=== PATIENT | male | born 1960 | race African-American/Black ===

== ENCOUNTER 2016-04-30 13:13 | Inpatient (IN) | payer MEDICAID ==
[~2016-04-30] VITALS: Ht 167.6 cm; Wt 94.8 kg
[2016-04-30] VITALS (8 sets, daily range): BP systolic 130–146; BP diastolic 70–106
[2016-04-30 15:11] LABS: BASOPHILS % 0.8 % (0.0-2.0); EOSINOPHILS % 2.3 % (0.0-5.0); HEMATOCRIT. 44.3 % (42.0-52.0); HEMOGLOBIN. 14.5 g/dL (14.0-18.0); LYMPHOCYTES % 31.8 % (20.0-50.0); MEAN CORPUSCULAR HEMOGLOBIN 26.7 pg (28.0-32.0); MEAN CORPUSCULAR HGB CONC 32.8 g/dL (31.0-37.0); MEAN CORPUSCULAR VOLUME 81.4 fL (80.0-94.0); MEAN PLATELET VOLUME 7.9 fl (7.4-10.4); MONOCYTES % 12.3 % (2.0-8.0); NEUTROPHILS % 52.8 % (40.0-76.0); PLATELET 227 x1000/uL (130-400); RED BLOOD CELL COUNT 5.44 mill/uL (4.7-6.1); RED CELL DISTRIBUTION WIDTH 15.8 % (11.6-14.6); WHITE BLOOD COUNT 5.9 x1000/uL (4.5-11.0)
[2016-04-30 15:27] LABS: ALANINE AMINOTRANSFERASE 44 IU/L (13-61); ALBUMIN 3.2 g/dL (3.4-5.0); ANION GAP 12; CALCIUM 8.6 mg/dL (8.5-10.1); CARBON DIOXIDE 28 mEq/L (21-32); CHLORIDE 104 mEq/L (98-107); INDEX HEMOLYSI 1 (1-3); INDEX ICTERIC 1 (1-4); INDEX LIPEMIC 1 (1-3); LIPASE 66 IU/L (73-393); UREA NITROGEN BLOOD 8 mg/dL (7-21); eGFR > 60 mL/min (>60)
[2016-04-30 15:31] LABS: D-DIMER 0.55 mg/L FEU (<0.50); PARTIAL THROMBOPLASTIN TIME 29.5 sec (24.0-34.0); PROTHROMBIN TIME 10.7 sec
[2016-04-30] MEDS ORDERED: ASPIRIN 325MG EC TABLET PO ONE (15:45)
[2016-04-30] MEDS ORDERED: METOPROLOL TARTRATE 50MG TABLET PO ONE (16:30)
[2016-04-30] MEDS ORDERED: ENOXAPARIN 100MG/ML SYR SUBCUT ONE (17:45)
[2016-04-30] MEDS ORDERED: ACETAMINOPHEN 325MG TABLET PO PRN (18:45)
[2016-04-30] MEDS ORDERED: DIPHENHYDRAMINE 50MG/ML VIAL IV PRN (18:45)
[2016-04-30] MEDS ORDERED: MAGNESIUM/ALUMINUM HYDROXIDE/SIMETHICONE 30ML UDC PO PRN (18:45)
[2016-04-30] MEDS ORDERED: HYDROCODONE/ACETAMINOPHEN 5/325MG TABLET PO PRN (18:45)
[2016-04-30] MEDS ORDERED: ENOXAPARIN 40MG/0.4ML SYR SUBCUT SCH ×2 (18:45→22:30)
[2016-04-30] MEDS ORDERED: HYDROMORPHONE HCL/PF 2MG/ML CPJ IV PRN (18:45)
[2016-04-30] MEDS ORDERED: NA PHOS,M-B/NA PHOS,DI-BA ENEMA 118ML PR PRN (18:45)
[2016-04-30] MEDS ORDERED: ONDANSETRON HCL 4MG/2ML VIAL IV PRN (18:45)
[2016-04-30] MEDS ORDERED: LORAZEPAM 2MG/ML CPJ IV PRN (18:45)
[2016-04-30] MEDS ORDERED: DOCUSATE SODIUM 100MG CAPSULE PO PRN (18:45)
[2016-04-30] MEDS: GUAIFENESIN 200MG/10ML SUGAR FREE UDC PO PRN (19:49)
[2016-04-30 21:07] LABS: *AMPHETAMINES SCREEN URINE NEGATIVE (NEGATIVE); *BARBITURATES SCREEN URINE NEGATIVE (NEGATIVE); *BENZODIAZEPINES SCREEN URINE PRESUMTIVE POSITIVE (NEGATIVE); *COCAINE SCREEN URINE NEGATIVE (NEGATIVE); CANNABINOID URINE SCREEN NEGATIVE (NEGATIVE); ECSTASY MDMA SCREEN URINE NEGATIVE (NEGATIVE); METHADONE URINE SCREEN NEGATIVE (NEGATIVE); OPIATES URINE SCREEN NEGATIVE (NEGATIVE); PHENCYCLIDINE URINE SCREEN NEGATIVE (NEGATIVE)
[2016-04-30] MEDS ORDERED: LORAZEPAM 2MG/ML CPJ IV ONE (21:15)
[2016-04-30 21:23] LABS: ANION GAP 15; CALCIUM 8.2 mg/dL (8.5-10.1); CARBON DIOXIDE 25 mEq/L (21-32); CHLORIDE 103 mEq/L (98-107); INDEX HEMOLYSI 1 (1-3); INDEX ICTERIC 1 (1-4); INDEX LIPEMIC 1 (1-3); UREA NITROGEN BLOOD 10 mg/dL (7-21); eGFR > 60 mL/min (>60)
[2016-04-30] MEDS ORDERED: ENOXAPARIN 30MG/0.3ML SYR SUBCUT SCH (22:21)
[2016-04-30] MEDS ORDERED: SODIUM CHLORIDE 0.45% 1,000 ML IV SCH (22:30)
[2016-05-01] VITALS (33 sets, daily range): BP systolic 100–165; BP diastolic 52–112
[2016-05-01] MEDS: IPRATROPIUM/ALBUTEROL 0.5-3(2.5)MG/3ML NEB INH SCH ×4 (00:03→21:10)
[2016-05-01] MEDS: GUAIFENESIN 200MG/10ML SUGAR FREE UDC PO PRN (00:15)
[2016-05-01] MEDS: CLONIDINE 0.1MG TABLET PO PRN ×2 (00:15→21:25)
[2016-05-01 06:03] LABS: BASOPHILS % 0.9 % (0.0-2.0); EOSINOPHILS % 2.5 % (0.0-5.0); HEMATOCRIT. 42.9 % (42.0-52.0); LYMPHOCYTES % 29.5 % (20.0-50.0); MEAN CORPUSCULAR HEMOGLOBIN 26.9 pg (28.0-32.0); MEAN CORPUSCULAR HGB CONC 32.6 g/dL (31.0-37.0); MEAN CORPUSCULAR VOLUME 82.3 fL (80.0-94.0); MEAN PLATELET VOLUME 8.3 fl (7.4-10.4); MONOCYTES % 9.6 % (2.0-8.0); NEUTROPHILS % 57.5 % (40.0-76.0); PLATELET 207 x1000/uL (130-400); RED BLOOD CELL COUNT 5.21 mill/uL (4.7-6.1); RED CELL DISTRIBUTION WIDTH 15.4 % (11.6-14.6)
[2016-05-01 07:02] LABS: ALANINE AMINOTRANSFERASE 41 IU/L (13-61); ANION GAP 15; CALCIUM 8.4 mg/dL (8.5-10.1); CARBON DIOXIDE 24 mEq/L (21-32); CHLORIDE 102 mEq/L (98-107); INDEX HEMOLYSI 1 (1-3); INDEX ICTERIC 1 (1-4); INDEX LIPEMIC 1 (1-3); UREA NITROGEN BLOOD 9 mg/dL (7-21); eGFR > 60 mL/min (>60)
[2016-05-01 07:19] LABS: HDL CHOLESTEROL 43 mg/dL (40-59); LDL CHOLESTEROL 162 mg/dL (5-100); T4 FREE 1.14 ng/dL (0.76-1.46); THYROID STIMULATING HORMONE 0.95 mIU/mL (0.36-3.74); TRIGLYCERIDE 161 mg/dL (0-150)
[2016-05-01] MEDS ORDERED: FUROSEMIDE 40MG/4ML VIAL IV SCH (09:00)
[2016-05-01] MEDS ORDERED: IODIXANOL 320MG/ML 200ML BOTTLE ONE ×2 (09:11→10:05)
[2016-05-01] MEDS ORDERED: LIDOCAINE HCL 1% 20ML VIAL (Pyxis) INJ ONE (09:11)
[2016-05-01] MEDS ORDERED: FENTANYL CITRATE/PF 50MCG/ML 2ML VIAL ONE (09:15)
[2016-05-01] MEDS ORDERED: MIDAZOLAM HCL 2 MG/2 ML VIAL ONE (09:15)
[2016-05-01] MEDS ORDERED: IOVERSOL 240MG/ML 100ML BOTTLE IV ONE (09:50)
[2016-05-01] MEDS ORDERED: CLOPIDOGREL 75MG TABLET ONE (10:11)
[2016-05-01] MEDS ORDERED: ATROPINE SULFATE 1MG/10ML SYR IV PRN (10:30)
[2016-05-01] MEDS ORDERED: ACETAMINOPHEN 325MG TABLET PO PRN (10:30)
[2016-05-01] MEDS ORDERED: CLOPIDOGREL 75MG TABLET PO ONE (10:30)
[2016-05-01] MEDS: ASPIRIN 81MG EC TABLET PO SCH (11:17)
[2016-05-01] MEDS: CARVEDILOL 6.25 MG TABLET PO SCH ×2 (11:18→20:14)
[2016-05-01] MEDS ORDERED: AMLO2.5T2 PO (12:38)
[2016-05-01] MEDS ORDERED: NITROGLYCERIN 50MCG/ML 10ML VIAL (CATH LAB) IV ONE (14:08)
[2016-05-01] MEDS ORDERED: HEPARIN SODIUM 1,000 UNIT/1ML VIAL IV ONE (14:30)
[2016-05-01] MEDS: LISINOPRIL 10MG TABLET PO SCH (20:14)
[2016-05-01] MEDS ORDERED: ATORVASTATIN CALCIUM 40MG TABLET PO SCH (21:00)
[2016-05-02] VITALS (20 sets, daily range): BP systolic 119–158; BP diastolic 64–114
[2016-05-02] MEDS: IPRATROPIUM/ALBUTEROL 0.5-3(2.5)MG/3ML NEB INH SCH ×3 (03:27→15:09)
[2016-05-02 05:30] LABS: BASOPHILS % 0.8 % (0.0-2.0); HEMATOCRIT. 39.2 % (42.0-52.0); HEMOGLOBIN. 12.8 g/dL (14.0-18.0); LYMPHOCYTES % 26.6 % (20.0-50.0); MEAN CORPUSCULAR HEMOGLOBIN 26.8 pg (28.0-32.0); MEAN CORPUSCULAR HGB CONC 32.8 g/dL (31.0-37.0); MEAN CORPUSCULAR VOLUME 81.9 fL (80.0-94.0); MEAN PLATELET VOLUME 8.1 fl (7.4-10.4); MONOCYTES % 13.1 % (2.0-8.0); NEUTROPHILS % 56.5 % (40.0-76.0); PLATELET 217 x1000/uL (130-400); RED BLOOD CELL COUNT 4.79 mill/uL (4.7-6.1); RED CELL DISTRIBUTION WIDTH 15.3 % (11.6-14.6); WHITE BLOOD COUNT 5.9 x1000/uL (4.5-11.0)
[2016-05-02 05:40] LABS: ANION GAP 15; CALCIUM 8.5 mg/dL (8.5-10.1); CARBON DIOXIDE 28 mEq/L (21-32); CHLORIDE 100 mEq/L (98-107); INDEX HEMOLYSI 1 (1-3); INDEX ICTERIC 1 (1-4); INDEX LIPEMIC 1 (1-3); UREA NITROGEN BLOOD 14 mg/dL (7-21); eGFR > 60 mL/min (>60)
[2016-05-02] MEDS: CLONIDINE 0.1MG TABLET PO PRN (06:00)
[2016-05-02] MEDS: LISINOPRIL 10MG TABLET PO SCH (08:56)
[2016-05-02] MEDS: CARVEDILOL 6.25 MG TABLET PO SCH (08:56)
[2016-05-02] MEDS: ASPIRIN 81MG EC TABLET PO SCH (08:56)
[2016-05-02] MEDS ORDERED: CLOPIDOGREL 75MG TABLET PO SCH (09:00)
== END 2016-05-02 16:42 | disposition home or self-care (01) | DRG 174 ==
LOC: ER 14:47 → CVICU 16:16
PROVIDERS: ADMIT Internal Medicine; ATTEND Internal Medicine
PROC: 027034Z Dilation of Coronary Artery, One Artery with Drug-eluting Intraluminal Device, Percutaneous Approach (ICD-10-PCS; principal; 2016-05-01)
PROC: 4A023N7 Measurement of Cardiac Sampling and Pressure, Left Heart, Percutaneous Approach (ICD-10-PCS; 2016-05-01)
PROC: B2111ZZ Fluoroscopy of Multiple Coronary Arteries using Low Osmolar Contrast (ICD-10-PCS; 2016-05-01)
DX: I21.4 Non-ST elevation (NSTEMI) myocardial infarction (principal); E87.8 Other disorders of electrolyte and fluid balance, not elsewhere classified; I25.10 Atherosclerotic heart disease of native coronary artery without angina pectoris; E78.5 Hyperlipidemia, unspecified; I10 Essential (primary) hypertension; F17.200 Nicotine dependence, unspecified, uncomplicated; J98.11 Atelectasis; Z98.890 Other specified postprocedural states
CPT/HCPCS: 36415; 71010; 80048; 80053; 80061; 80305; 83690; 84439; 84443; 84484; 85025; 85347; 85379; 85610; 85730; 92928; 93005; 93306; 93454; 93970; 94640; 96372; 96374; 99285; C1725; C1760; C1769; C1887; C1893; J1644; J1650; J1940; J2060; J2250; J2405; J3010; J3490; J7620; Q9967

== ENCOUNTER 2017-12-25 11:59 | Inpatient (IN) | payer MEDICAID ==
[~2017-12-25] VITALS: Ht 172.7 cm; Wt 66.7 kg
[2017-12-25] MEDS ORDERED: ASPIRIN 81MG TABLET PO ONE (14:00)
[2017-12-25] MEDS ORDERED: NITROGLYCERIN 0.4MG TABLET SL SL PRN (14:00)
[2017-12-25] MEDS ORDERED: HYDRALAZINE 20MG/ML VIAL IV ONE ×2 (14:00→19:00)
[2017-12-25 14:42] LABS: BASOPHILS % 1.3 % (0.0-2.0); EOSINOPHILS % 2.1 % (0.0-5.0); HEMATOCRIT. 38.6 % (42.0-52.0); HEMOGLOBIN. 12.9 g/dL (14.0-18.0); LYMPHOCYTES % 29.9 % (20.0-50.0); MEAN CORPUSCULAR HEMOGLOBIN 30.1 pg (28.0-32.0); MEAN CORPUSCULAR VOLUME 90.2 fL (80.0-94.0); MEAN PLATELET VOLUME 7.9 fl (7.4-10.4); MONOCYTES % 9.6 % (2.0-8.0); NEUTROPHILS % 57.1 % (40.0-76.0); PLATELET 243 x1000/uL (130-400); RED BLOOD CELL COUNT 4.28 mill/uL (4.7-6.1)
[2017-12-25 14:44] LABS: CHLORIDE 98 mEq/L (98-107)
[2017-12-25 14:47] LABS: PARTIAL THROMBOPLASTIN TIME 26.9 sec (23.4-31.0); PROTHROMBIN TIME 10.4 sec (9.1-11.1)
[2017-12-25] MEDS ORDERED: HYDROCODONE/ACETAMINOPHEN 5/325MG TABLET PO ONE (15:00)
[2017-12-25] MEDS ORDERED: ENOXAPARIN 100MG/ML SYR SUBCUT ONE (15:45)
[2017-12-25] MEDS ORDERED: KCL 20MEQ/100ML PREMIX 100 ML IV ONE (15:45)
[2017-12-25] MEDS ORDERED: MAGNESIUM 2 G PREMIX 50 ML IV ONE (16:15)
[2017-12-25] MEDS ORDERED: POTASSIUM CHLORIDE 20MEQ TABLET SR PO ONE (16:15)
[2017-12-25] MEDS ORDERED: IOHEXOL-350 100 ML BOTTLE ONE (18:27)
[2017-12-25] MEDS ORDERED: CLONIDINE 0.1MG TABLET PO PRN (20:45)
[2017-12-25] MEDS ORDERED: HYDRALAZINE 20MG/ML VIAL IV PRN (20:45)
[2017-12-25] MEDS ORDERED: MAGNESIUM HYDROXIDE 400MG/5ML 30ML UDC PO PRN (20:45)
[2017-12-25] MEDS ORDERED: ONDANSETRON HCL 4MG/2ML INJ IV PRN (20:45)
[2017-12-25] MEDS ORDERED: DIPHENHYDRAMINE 50MG/ML VIAL IV PRN (20:45)
[2017-12-25] MEDS ORDERED: MORPHINE SULFATE 4 MG/ML CPJ (NOT FOR IM USE) IV PRN (20:45)
[2017-12-25] MEDS ORDERED: ACETAMINOPHEN 325MG TABLET PO PRN (20:45)
[2017-12-25 21:15] VITALS: BP 183/113
[2017-12-25] MEDS: ATORVASTATIN CALCIUM 40MG TABLET PO SCH (22:29)
[2017-12-25] MEDS: CARVEDILOL 25MG TABLET PO SCH (22:29)
[2017-12-25] MEDS: POTASSIUM CHLORIDE 20MEQ TABLET SR PO SCH (22:29)
[2017-12-25] MEDS: LISINOPRIL 10MG TABLET PO SCH (22:30)
[2017-12-25] MEDS: SODIUM CHLORIDE 0.9% INJ 3ML FLUSH IVF SCH (22:30)
[2017-12-25] MEDS: LORAZEPAM 0.5MG TABLET PO PRN (22:30)
[2017-12-25] MEDS: ENOXAPARIN 30MG/0.3ML SYR SUBCUT SCH (22:31)
[2017-12-25 22:34] VITALS: BP 183/113
[2017-12-25] MEDS ORDERED: MAGNESIUM 2 G PREMIX 50 ML IV NR (23:00)
[2017-12-25] MEDS: TEMAZEPAM 15MG CAPSULE PO PRN (23:32)
[2017-12-25] MEDS ORDERED: HYDROCODONE/ACETAMINOPHEN 5/325MG TABLET PO PRN (23:45)
[2017-12-25] MEDS ORDERED: ENAL5TAB PO (23:55)
[2017-12-25] MEDS ORDERED: LOPE2TAB26 PO (23:55)
[2017-12-25] MEDS ORDERED: FURO40TA5 PO (23:55)
[2017-12-25] MEDS ORDERED: ATOR10TA69 PO (23:55)
[2017-12-25] MEDS ORDERED: ASPI-1159 PO (23:55)
[2017-12-26] VITALS: BP 141/103
[2017-12-26 04:00] VITALS: BP 133/99
[2017-12-26] MEDS: SODIUM CHLORIDE 0.9% INJ 3ML FLUSH IVF SCH ×3 (05:19→21:04)
[2017-12-26] MEDS ORDERED: REGADENOSON 0.4 MG/5 ML IV SCH (06:30)
[2017-12-26 07:44] LABS: BASOPHILS % 1.3 % (0.0-2.0); EOSINOPHILS % 4.2 % (0.0-5.0); HEMATOCRIT. 36.1 % (42.0-52.0); HEMOGLOBIN. 12.3 g/dL (14.0-18.0); LYMPHOCYTES % 22.9 % (20.0-50.0); MEAN CORPUSCULAR HEMOGLOBIN 30.7 pg (28.0-32.0); MEAN CORPUSCULAR VOLUME 90.4 fL (80.0-94.0); MEAN PLATELET VOLUME 8.4 fl (7.4-10.4); MONOCYTES % 8.5 % (2.0-8.0); NEUTROPHILS % 63.1 % (40.0-76.0); PLATELET 219 x1000/uL (130-400); RED CELL DISTRIBUTION WIDTH 16.7 % (11.6-14.6)
[2017-12-26 07:48] LABS: CHLORIDE 99 mEq/L (98-107)
[2017-12-26 08:00] VITALS: BP 170/59
[2017-12-26 08:00] LABS: PHOSPHORUS 2.2 mg/dL (2.5-4.9)
[2017-12-26] MEDS ORDERED: AMLODIPINE 5MG TABLET PO SCH ×2 (09:00→17:00)
[2017-12-26] MEDS: POTASSIUM CHLORIDE 20MEQ TABLET SR PO SCH ×4 (09:36→19:12)
[2017-12-26] MEDS: CARVEDILOL 25MG TABLET PO SCH ×2 (09:41→20:48)
[2017-12-26] MEDS: LISINOPRIL 10MG TABLET PO SCH (09:42)
[2017-12-26 09:58] LABS: *AMPHETAMINES SCREEN URINE NEGATIVE (NEGATIVE)
[2017-12-26 09:59] LABS: *BARBITURATES SCREEN URINE NEGATIVE (NEGATIVE); *BENZODIAZEPINES SCREEN URINE PRESUMTIVE POSITIVE (NEGATIVE); *COCAINE SCREEN URINE NEGATIVE (NEGATIVE); METHADONE URINE SCREEN NEGATIVE (NEGATIVE); OPIATES URINE SCREEN PRESUMTIVE POSITIVE (NEGATIVE)
[2017-12-26 10:00] LABS: CANNABINOID URINE SCREEN NEGATIVE (NEGATIVE); PHENCYCLIDINE URINE SCREEN NEGATIVE (NEGATIVE)
[2017-12-26] MEDS: ENOXAPARIN 30MG/0.3ML SYR SUBCUT SCH ×2 (10:00→21:05)
[2017-12-26] MEDS: MAGNESIUM OXIDE 400MG TABLET PO SCH ×2 (10:39→16:51)
[2017-12-26] MEDS: CLOPIDOGREL 75MG TABLET PO SCH (10:39)
[2017-12-26] MEDS: ASPIRIN 81MG EC TABLET PO SCH (10:43)
[2017-12-26 12:00] VITALS: BP 133/76
[2017-12-26] MEDS ORDERED: PNEUMOCOCCAL 23-VAL P-SAC VAC 0.5 ML IM ONE (12:00)
[2017-12-26] MEDS ORDERED: THIAMINE HCL 100 MG in SODIUM CHLORIDE 0.9% 49 ML IV SCH (13:00)
[2017-12-26 16:00] VITALS: BP 150/99
[2017-12-26] MEDS: LOSARTAN POTASSIUM 100 MG TABLET PO SCH (19:12)
[2017-12-26 20:00] VITALS: BP 144/104
[2017-12-26] MEDS: ATORVASTATIN CALCIUM 40MG TABLET PO SCH (20:48)
[2017-12-26] MEDS: NIFEDIPINE XL 90MG TAB PO SCH (20:48)
[2017-12-26] MEDS ORDERED: LISINOPRIL 20MG TABLET PO SCH (21:00)
[2017-12-26] MEDS: TEMAZEPAM 15MG CAPSULE PO PRN (21:04)
[2017-12-27] VITALS (7 sets, daily range): BP systolic 106–129; BP diastolic 72–87
[2017-12-27] MEDS: LORAZEPAM 0.5MG TABLET PO PRN (02:46)
[2017-12-27] MEDS: SODIUM CHLORIDE 0.9% INJ 3ML FLUSH IVF SCH ×3 (06:57→21:29)
[2017-12-27 07:47] LABS: BASOPHILS % 1.1 % (0.0-2.0); CHLORIDE 104 mEq/L (98-107); EOSINOPHILS % 4.4 % (0.0-5.0); HEMATOCRIT. 35.4 % (42.0-52.0); LYMPHOCYTES % 26.5 % (20.0-50.0); MEAN CORPUSCULAR HEMOGLOBIN 30.9 pg (28.0-32.0); MEAN CORPUSCULAR VOLUME 91.3 fL (80.0-94.0); MEAN PLATELET VOLUME 8.5 fl (7.4-10.4); MONOCYTES % 8.8 % (2.0-8.0); NEUTROPHILS % 59.2 % (40.0-76.0); PLATELET 206 x1000/uL (130-400); RED BLOOD CELL COUNT 3.88 mill/uL (4.7-6.1); RED CELL DISTRIBUTION WIDTH 16.8 % (11.6-14.6)
[2017-12-27 07:52] LABS: PHOSPHORUS 1.8 mg/dL (2.5-4.9)
[2017-12-27] MEDS: LOSARTAN POTASSIUM 100 MG TABLET PO SCH (09:00)
[2017-12-27] MEDS: NIFEDIPINE XL 90MG TAB PO SCH (09:00)
[2017-12-27] MEDS ORDERED: ATENOLOL 50 MG TABLET PO SCH ×2 (09:00)
[2017-12-27] MEDS: CARVEDILOL 25MG TABLET PO SCH ×2 (09:00→21:29)
[2017-12-27] MEDS: MAGNESIUM OXIDE 400MG TABLET PO SCH ×2 (09:59→16:47)
[2017-12-27] MEDS: ASPIRIN 81MG EC TABLET PO SCH (10:00)
[2017-12-27] MEDS: CLOPIDOGREL 75MG TABLET PO SCH (10:00)
[2017-12-27] MEDS: POTASSIUM CHLORIDE 20MEQ TABLET SR PO SCH (10:00)
[2017-12-27] MEDS ORDERED: POTASSIUM CHLORIDE 20MEQ TABLET SR PO SCH (10:45)
[2017-12-27] MEDS: ENOXAPARIN 30MG/0.3ML SYR SUBCUT SCH ×2 (11:20→21:34)
[2017-12-27] MEDS ORDERED: POTASSIUM CHLORIDE 20MEQ TABLET SR PO NR (15:00)
[2017-12-27] MEDS ORDERED: POTASSIUM PHOS,M-BASIC-D-BASIC 30 MMOL in DEXT 5% WATER 500 ML IV NR (16:30)
[2017-12-27] MEDS: ATORVASTATIN CALCIUM 40MG TABLET PO SCH (21:28)
[2017-12-27] MEDS: TEMAZEPAM 15MG CAPSULE PO PRN (21:29)
[2017-12-28] VITALS: BP 132/49
[2017-12-28 04:00] VITALS: BP 110/52
[2017-12-28] MEDS: SODIUM CHLORIDE 0.9% INJ 3ML FLUSH IVF SCH ×3 (05:24→21:47)
[2017-12-28 07:51] LABS: BASOPHILS % 0.7 % (0.0-2.0); EOSINOPHILS % 3.6 % (0.0-5.0); HEMATOCRIT. 34.9 % (42.0-52.0); HEMOGLOBIN. 11.6 g/dL (14.0-18.0); LYMPHOCYTES % 23.7 % (20.0-50.0); MEAN CORPUSCULAR HEMOGLOBIN 30.5 pg (28.0-32.0); MEAN CORPUSCULAR VOLUME 91.6 fL (80.0-94.0); MEAN PLATELET VOLUME 8.2 fl (7.4-10.4); MONOCYTES % 11.6 % (2.0-8.0); NEUTROPHILS % 60.4 % (40.0-76.0); PLATELET 198 x1000/uL (130-400); RED BLOOD CELL COUNT 3.81 mill/uL (4.7-6.1); RED CELL DISTRIBUTION WIDTH 16.6 % (11.6-14.6)
[2017-12-28 08:00] VITALS: BP 138/99
[2017-12-28 08:10] LABS: CHLORIDE 105 mEq/L (98-107)
[2017-12-28 08:21] LABS: PHOSPHORUS 3.1 mg/dL (2.5-4.9)
[2017-12-28] MEDS ORDERED: REGADENOSON 0.4 MG/5 ML IV ONE (11:12)
[2017-12-28 13:22] VITALS: BP 149/98
[2017-12-28] MEDS: LOSARTAN POTASSIUM 25 MG TABLET PO SCH (13:25)
[2017-12-28] MEDS: POTASSIUM CHLORIDE 20MEQ TABLET SR PO SCH (13:25)
[2017-12-28] MEDS: ASPIRIN 81MG EC TABLET PO SCH (13:25)
[2017-12-28] MEDS: MAGNESIUM OXIDE 400MG TABLET PO SCH ×2 (13:25→17:33)
[2017-12-28] MEDS: CARVEDILOL 25MG TABLET PO SCH ×2 (13:25→21:45)
[2017-12-28] MEDS: CLOPIDOGREL 75MG TABLET PO SCH (13:45)
[2017-12-28 16:00] VITALS: BP 132/93
[2017-12-28 20:00] VITALS: BP 122/71
[2017-12-28] MEDS: ATORVASTATIN CALCIUM 40MG TABLET PO SCH (21:44)
[2017-12-28] MEDS: TEMAZEPAM 15MG CAPSULE PO PRN (21:45)
[2017-12-29] VITALS (8 sets, daily range): BP systolic 112–160; BP diastolic 78–107
[2017-12-29] MEDS: SODIUM CHLORIDE 0.9% INJ 3ML FLUSH IVF SCH ×3 (06:49→22:00)
[2017-12-29] MEDS: LOSARTAN POTASSIUM 25 MG TABLET PO SCH ×2 (09:00→09:29)
[2017-12-29] MEDS: POTASSIUM CHLORIDE 20MEQ TABLET SR PO SCH ×2 (09:00→09:29)
[2017-12-29] MEDS: ASPIRIN 81MG EC TABLET PO SCH ×2 (09:00→09:29)
[2017-12-29] MEDS: MAGNESIUM OXIDE 400MG TABLET PO SCH ×4 (09:00→18:21)
[2017-12-29] MEDS: CARVEDILOL 25MG TABLET PO SCH ×3 (09:00→20:22)
[2017-12-29] MEDS: CLOPIDOGREL 75MG TABLET PO SCH ×2 (09:00→09:28)
[2017-12-29] MEDS: SODIUM CHLORIDE 0.45% 1,000 ML IV SCH ×2 (09:44→20:28)
[2017-12-29] MEDS ORDERED: LIDOCAINE HCL 1% 10 MG/ML 10ML VIAL ONE (12:24)
[2017-12-29] MEDS ORDERED: IODIXANOL 320MG/ML 100 ML BOTTLE IV ONE ×2 (12:24→13:38)
[2017-12-29] MEDS ORDERED: MIDAZOLAM HCL 2 MG/2 ML VIAL ONE (12:59)
[2017-12-29] MEDS ORDERED: FENTANYL CITRATE/PF 50MCG/ML 2ML VIAL ONE (12:59)
[2017-12-29] MEDS ORDERED: HEPARIN SODIUM 1,000 UNIT/1ML VIAL IV ONE (13:32)
[2017-12-29] MEDS ORDERED: IOHEXOL-300 100 ML BOTTLE ONE (13:32)
[2017-12-29] MEDS ORDERED: NICARDIPINE 100MCG/ML 10ML VIAL (CATH LAB) IV ONE (13:43)
[2017-12-29] MEDS ORDERED: NITROGLYCERIN 50MCG/ML 10ML VIAL (CATH LAB) IV ONE (13:43)
[2017-12-29] MEDS ORDERED: ONDANSETRON HCL 4MG/2ML INJ IV PRN (14:00)
[2017-12-29] MEDS ORDERED: ACETAMINOPHEN 325MG TABLET PO PRN (14:00)
[2017-12-29] MEDS: CLONIDINE 0.2MG TABLET PO PRN (15:56)
[2017-12-29] MEDS: ATORVASTATIN CALCIUM 40MG TABLET PO SCH (20:22)
[2017-12-29] MEDS: TEMAZEPAM 15MG CAPSULE PO PRN (20:22)
[2017-12-30] VITALS (9 sets, daily range): BP systolic 78–147; BP diastolic 45–108
[2017-12-30] MEDS: LORAZEPAM 0.5MG TABLET PO PRN (02:24)
[2017-12-30] MEDS: SODIUM CHLORIDE 0.9% INJ 3ML FLUSH IVF SCH ×2 (05:06→14:37)
[2017-12-30] MEDS: CLONIDINE 0.2MG TABLET PO PRN (06:44)
[2017-12-30 06:48] LABS: BASOPHILS % 0.9 % (0.0-2.0); EOSINOPHILS % 3.2 % (0.0-5.0); HEMOGLOBIN. 11.8 g/dL (14.0-18.0); LYMPHOCYTES % 19.9 % (20.0-50.0); MEAN CORPUSCULAR HEMOGLOBIN 31.3 pg (28.0-32.0); MEAN CORPUSCULAR VOLUME 93.1 fL (80.0-94.0); MEAN PLATELET VOLUME 8.5 fl (7.4-10.4); MONOCYTES % 12.7 % (2.0-8.0); NEUTROPHILS % 63.3 % (40.0-76.0); PLATELET 198 x1000/uL (130-400); RED BLOOD CELL COUNT 3.76 mill/uL (4.7-6.1); RED CELL DISTRIBUTION WIDTH 16.7 % (11.6-14.6)
[2017-12-30 07:40] LABS: CHLORIDE 104 mEq/L (98-107)
[2017-12-30] MEDS: CLOPIDOGREL 75MG TABLET PO SCH (08:28)
[2017-12-30] MEDS: MAGNESIUM OXIDE 400MG TABLET PO SCH (08:28)
[2017-12-30] MEDS: ASPIRIN 81MG EC TABLET PO SCH (08:28)
[2017-12-30] MEDS: CARVEDILOL 25MG TABLET PO SCH (08:28)
[2017-12-30] MEDS: POTASSIUM CHLORIDE 20MEQ TABLET SR PO SCH (08:28)
[2017-12-30] MEDS: LOSARTAN POTASSIUM 25 MG TABLET PO SCH (08:28)
== END 2017-12-30 16:30 | disposition home or self-care (01) | DRG 192 ==
LOC: ER 13:28 → 5WST 17:49 → EDBEDREQTM 17:54 → EDBEDREQ 17:54 → ENRESERV 19:12 → 3WST 12-29 14:15
PROVIDERS: ADMIT Internal Medicine; ATTEND Internal Medicine
PROC: 4A023N7 Measurement of Cardiac Sampling and Pressure, Left Heart, Percutaneous Approach (ICD-10-PCS; principal; 2017-12-29)
PROC: B2111ZZ Fluoroscopy of Multiple Coronary Arteries using Low Osmolar Contrast (ICD-10-PCS; 2017-12-29)
PROC: B2151ZZ Fluoroscopy of Left Heart using Low Osmolar Contrast (ICD-10-PCS; 2017-12-29)
DX: R07.89 Other chest pain (principal); E83.42 Hypomagnesemia; I71.2 Thoracic aortic aneurysm, without rupture; I11.0 Hypertensive heart disease with heart failure; I50.9 Heart failure, unspecified; E87.6 Hypokalemia; I25.5 Ischemic cardiomyopathy; F17.210 Nicotine dependence, cigarettes, uncomplicated; E78.00 Pure hypercholesterolemia, unspecified; E78.5 Hyperlipidemia, unspecified; F41.1 Generalized anxiety disorder; I25.10 Atherosclerotic heart disease of native coronary artery without angina pectoris; I34.0 Nonrheumatic mitral (valve) insufficiency; I25.2 Old myocardial infarction; Z79.02 Long term (current) use of antithrombotics/antiplatelets; Z86.73 Personal history of transient ischemic attack (TIA), and cerebral infarction without residual deficits; Z82.49 Family history of ischemic heart disease and other diseases of the circulatory system; Z95.5 Presence of coronary angioplasty implant and graft; Z71.6 Tobacco abuse counseling
CPT/HCPCS: 36415; 71045; 71275; 78452; 80048; 80053; 80305; 83735; 83880; 84100; 84484; 85025; 85347; 85379; 85610; 85730; 90732; 93005; 93017; 93306; 93458; 93970; 96361; 96365; 96372; 96375; 99285; A9500; C1769; C1887; C1893; J0360; J1200; J1644; J1650; J2250; J2785; J3010; J3411; J3475; J3480; J3490; J7040; J7060; Q9967